=== PATIENT | female | born 1960 | race Caucasian/White ===

== ENCOUNTER 2017-12-03 01:26 | Day surgery (SDC) | payer OTHER ==
[~2017-12-03] VITALS: Ht 160 cm; Wt 76.7 kg
[~2017-12-03 01:26] MED LIST: ASPI-1471 PO; ATOR20TA22 PO; BACDS PO; CYCL10TA29 PO; HYDR-3250 PO; HYDR12.561 PO; LISI20TA29 PO; MULT1TAB66 PO; NAP500 PO; OXYC-865 PO; PER PO; PRED20TA6 PO; SIMV-49 PO; TRA50 PO; VALA500T63 PO
--- NOTE | 2017-12-03 05:46 | Post Operative Progress Note ---
Post Operative Progress Note Date: Dec 03, 2017 Time: 11:16 Surgeon: ricardo Anesthesia: dr downing Pre-Op Diagnosis: personal history of polyps Post-Op Diagnosis: sigmoid diverticulosis Procedure(s): colonoscopy BUSTER VANCE MD Dec 03, 2017 05:46
--- NOTE | 2017-12-03 05:47 | Short(Outpt) Discharge Summary ---
Discharge Summary Reason for Hosp/Final Diag: (1) Encounter for colonoscopy due to history of adenomatous colonic polyps Hospital Course & Plan: sigmoid diverticulosis Departure Discharge to: Home Discharge Instructions Home Meds Reported Medications Aspirin (ASPIR 81) 81 Mg Tablet.dr, 81 MG PO QDAY, TAB 12/01/17 Multivitamin/Iron/Folic Acid (MULTI-DAY PLUS IRON TABLET) 1 Each Tablet, 1 EACH PO QDAY 12/01/17 Valacyclovir Hcl (VALACYCLOVIR) 500 Mg Tablet, 500 MG PO QDAY 12/01/17 Atorvastatin Calcium (LIPITOR) 20 Mg Tablet, 1 TAB PO QAM, TAB 12/01/17 Hydrochlorothiazide (HYDROCHLOROTHIAZIDE) 12.5 Mg Tablet, 1 TAB PO QDAY TAKE ONE TABLET BY MOUTH EVERY DAY 07/04/14 Lisinopril (LISINOPRIL) 20 Mg Tablet, 20 MG PO QDAY 07/04/14 Naproxen (NAPROSYN (OR EQUIV)) 500 Mg Tab, 500 MG PO PRN, #60 10/21/12 Discontinued Reported Medications Simvastatin (SIMVASTATIN) 20 Mg Tablet, 20 MG PO HS, TAB 07/04/14 Discontinued Scripts Prednisone (PREDNISONE) 20 Mg Tablet, 40 MG PO QDAY for PAIN for 7 Days Prov:SERA CHOUDHARY MD 07/14/14 Oxycodone Hcl/Acetaminophen (PERCOCET 5-325 MG TABLET) 1 Each Tablet, 1 EACH PO Q4-6H Y for PAIN, #20 Prov:SERA CHOUDHARY MD 07/14/14 Cyclobenzaprine Hcl (CYCLOBENZAPRINE HCL) 10 Mg Tablet, 10 MG PO TID for Muscle Relaxant, #30 TAB TAKE 1 TABLET BY MOUTH THREE TIMES A DAY Prov:SERA CHOUDHARY MD 07/14/14 Diet: High Fiber Activity: As Tolerated BUSTER VANCE MD Dec 03, 2017 05:47
[2017-12-03] MEDS ORDERED: PROPOFOL EMUL(*) 10MG/ML 20 ML 20 ML ONE (07:14)
[2017-12-03] MEDS ORDERED: MIDAZOLAM 2 MG/2 ML VIAL IVP ONE (10:00)
[2017-12-03] MEDS ORDERED: LIDOCAINE/SOD BICARB 8.4% SYR ID ONE (10:00)
[2017-12-03] MEDS ORDERED: NORMOSOL R SOLN(*) 1000 ML BAG 1,000 ML IV PRN (10:00)
[2017-12-03 10:03] VITALS: BP 102/63
[2017-12-03 11:16] VITALS: BP 90/65
[2017-12-03 11:30] VITALS: BP 93/61
[2017-12-03 11:40] VITALS: BP 107/64
[2017-12-03 11:44] VITALS: BP 101/73
--- NOTE | 2017-12-03 18:51 | OPERATIVE REPORT 1 ---
EVENT DATE: December 03, 2017 SURGEON: Adam Monae MD ANESTHESIOLOGIST: Marc Hodges MD ANESTHESIA: Sedation. PREOPERATIVE DIAGNOSIS Personal history of polyps. POSTOPERATIVE DIAGNOSIS Sigmoid diverticulosis. PROCEDURE PERFORMED Colonoscopy. DESCRIPTION OF PROCEDURE The patient was placed in the left lateral decubitus position and given intravenous sedation. The rectal exam was unremarkable. A flexible colonoscope was inserted and advanced to the cecum. She had a little bit of thick liquid stool in the right colon. We were able to suction this out well and get good visualization. No abnormalities were noted in the cecum or right colon. Care was taken to look behind the haustral folds. In the transverse colon, she had a light covering of stool, but we could see through this pretty well, and no abnormalities were noted in the transverse colon or descending colon. She had some diverticula in the sigmoid colon. No evidence of diverticulitis. The rectum was normal. The scope was retroflexed, and that appeared to be normal. The patient will require repeat colonoscopy in five years due to the personal history of polyps. SUSAN
== END 2017-12-03 12:00 | disposition home or self-care (01) ==
LOC: OR 01:26
PROVIDERS: ATTEND Surgery
DX: Z12.11 Encounter for screening for malignant neoplasm of colon (principal); K57.30 Diverticulosis of large intestine without perforation or abscess without bleeding; Z86.010 Personal history of colon polyps
CPT/HCPCS: 00812; 45378; J2704

== ENCOUNTER 2018-07-29 10:13 | Emergency (ER) | payer SELFPAY ==
[~2018-07-29 10:13] MED LIST changes: -FAMO-67 PO; -FLUT16SP19 NS; -HYDR-2966 PO; -NITR0.4T3 SL
--- NOTE | 2018-07-29 10:14 | ER Report ---
History and Physical Time Seen By MD: 10:15 HPI/ROS CHIEF COMPLAINT: Left arm numbness during stress test HISTORY OF PRESENT ILLNESS: Patient is a 57-year-old female who presents to the emergency department after experiencing some left arm numbness that occurred during an exercise stress test today. Patient states she's been having episodic chest pain and arm numbness which is the reason the testing was done. Looking at the stress test report patient had normal pretest EKG. Patient was able to exercise through stage I 2 and 3 using the Camron protocol. She developed left arm numbness at 8 minutes of exercise. In the recovery phase she still complained of numbness which was improving. She was given 2 sublingual nitroglycerin at 12 minutes and again at 27 minutes without significant improvement. Or this reason she was sent to the emergency department for further evaluation. Patient states that she actually did some exercise on an elliptical machine this morning and was able to tolerate exercise without any difficulty but did report some chest pressure on her way home. She currently states the left arm numbness is resolving. REVIEW OF SYSTEMS: Constitutional: No fever, no chills. Eyes: No discharge. ENT: No sore throat. Cardiovascular: No chest pain, no palpitations. Respiratory: No cough, no shortness of breath. Gastrointestinal: No abdominal pain, no vomiting. Genitourinary: No hematuria. Musculoskeletal: No back pain. Skin: No rashes. Neurological: No headache. Left arm numbness Allergies: Coded Allergies: morphine (Verified Allergy, Mild, NAUSEA/VOMITING, 07/29/18) codeine (Verified Allergy, Unknown, 07/29/18) Home Meds Reported Medications Famotidine (FAMOTIDINE) 20 Mg Tablet, 20 MG PO QDAY, TAB 07/29/18 Fluticasone Prop 50 Mcg Ns (FLONASE 50 MCG NS) 16 Gm [place].susp, 1 SPRAY NS BID, BOT 07/29/18 Hydrochlorothiazide (HYDROCHLOROTHIAZIDE) 25 Mg Tablet, 1 TAB PO QDAY, TAB 07/29/18 Nitroglycerin (NITROGLYCERIN) 0.4 Mg Tab.subl, 0.4 MG SL Q5MIN 07/29/18 Multivitamin/Iron/Folic Acid (MULTI-DAY PLUS IRON TABLET) 1 Each Tablet, 1 EACH PO QDAY 12/01/17 Valacyclovir Hcl (VALACYCLOVIR) 500 Mg Tablet, 500 MG PO QDAY 12/01/17 Atorvastatin Calcium (LIPITOR) 20 Mg Tablet, 1 TAB PO QAM, TAB 12/01/17 Hydrochlorothiazide (HYDROCHLOROTHIAZIDE) 12.5 Mg Tablet, 1 TAB PO QDAY TAKE ONE TABLET BY MOUTH EVERY DAY 07/04/14 Lisinopril (LISINOPRIL) 20 Mg Tablet, 20 MG PO QDAY 07/04/14 Naproxen (NAPROSYN (OR EQUIV)) 500 Mg Tab, 500 MG PO PRN, #60 10/21/12 Discontinued Reported Medications Aspirin (ASPIR 81) 81 Mg Tablet.dr, 81 MG PO QDAY, TAB 12/01/17 Past Medical/Surgical History Hypertension, hypercholesterolemia Hx Smoking: Yes Smoking Status: Former Smoker Hx Substance Use Disorder: No Hx Alcohol Use: No Constitutional Physical Exam General Appearance: The patient is alert, has no immediate need for airway protection and no signs of toxicity. Eyes: Pupils equal and round no pallor or injection. ENT, Mouth: Mucous membranes are moist. Respiratory: There are no retractions, lungs are clear to auscultation. Cardiovascular: Regular rate and rhythm. Gastrointestinal: Abdomen is soft and non tender, no masses, bowel sounds normal. Neurological: Awake and alert Skin: Warm and dry, no rashes. Musculoskeletal: Neck is supple non tender. Extremities are nontender, nonswollen and have full range of motion. Medical Decision Making Data Points Laboratory Hematology Test 07/29/18 10:20 07/29/18 12:00 07/29/18 14:18 Red Blood Count 4.79 M/uL (4.17-5.56) Mean Corpuscular Volume 92.9 fL (80.0-96.0) Mean Corpuscular Hemoglobin 32.0 pg (26.0-33.0) Mean Corpuscular Hemoglobin Concent 34.4 g/dL (32.0-36.0) Red Cell Distribution Width 12.9 % (11.5-14.5) Mean Platelet Volume 8.0 fL (7.2-11.1) Neutrophils (%) (Auto) 55.4 % (39.4-72.5) Lymphocytes (%) (Auto) 33.0 % (17.6-49.6) Monocytes (%) (Auto) 9.2 % (4.1-12.4) Eosinophils (%) (Auto) 1.8 % (0.4-6.7) Basophils (%) (Auto) 0.6 % (0.3-1.4) Nucleated RBC Relative Count (auto) 0.1 /100WBC Neutrophils # (Auto) 3.7 K/uL (2.0-7.4) Lymphocytes # (Auto) 2.2 K/uL (1.3-3.6) Monocytes # (Auto) 0.6 K/uL (0.3-1.0) Eosinophils # (Auto) 0.1 K/uL (0.0-0.5) Basophils # (Auto) 0.0 K/uL (0.0-0.1) Nucleated RBC Absolute Count (auto) 0.00 K/uL Prothrombin Time 12.6 seconds (12.0-14.4) Prothromb Time International Ratio 0.94 Activated Partial Thromboplast Time 24 seconds (23-35) Sodium Level 140 mmol/L (137-145) Potassium Level 3.8 mmol/L (3.5-5.0) Chloride Level 104 mmol/L (98-107) Carbon Dioxide Level 23 mmol/L (22-31) Blood Urea Nitrogen 17 mg/dl (7-18) Creatinine 0.70 mg/dl (0.52-1.04) Glomerular Filtration Rate Calc > 60.0 Random Glucose 103 mg/dl (75-110) Calcium Level 9.7 mg/dl (8.4-10.2) Total Bilirubin 0.8 mg/dl (0.2-1.3) Aspartate Amino Transf (AST/SGOT) 41 U/L (0-35) Alanine Aminotransferase (ALT/SGPT) 56 U/L (0-56) Alkaline Phosphatase 75 U/L (0-126) B-Type Natriuretic Peptide 17 pg/ml (0-100) Total Protein 8.0 g/dl (6.3-8.2) Albumin 4.6 g/dl (3.5-5.0) Urine Color Yellow Urine Clarity Clear Urine pH 6.0 pH (4.8-9.5) Urine Specific [place] 1.010 Urine Protein Negative mg/dL (NEGATIVE) Urine Glucose (UA) Negative mg/dL (NEGATIVE) Urine Ketones Negative mg/dL (NEGATIVE) Urine Blood Negative (NEGATIVE) Urine Nitrite Negative (NEGATIVE) Urine Bilirubin Negative (NEGATIVE) Urine Urobilinogen Negative mg/dL (0.2-1.9) Urine Leukocyte Esterase Negative (NEGATIVE) Urine RBC None /HPF (0-2/HPF) Urine WBC None /HPF (0-5/HPF) Urine Squamous Epithelial Cells Few /LPF (</=FEW) Urine Bacteria Negative /HPF (NONE-FEW) Urine Mucus None /HPF (NONE-FEW) Troponin I < 0.012 ng/ml Chemistry Test 07/29/18 10:20 07/29/18 12:00 07/29/18 14:18 White Blood Count 6.6 k/uL (4.5-11.0) Red Blood Count 4.79 M/uL (4.17-5.56) Hemoglobin 15.3 g/dL (12.0-16.0) Hematocrit 44.5 % (34.0-47.0) Mean Corpuscular Volume 92.9 fL (80.0-96.0) Mean Corpuscular Hemoglobin 32.0 pg (26.0-33.0) Mean Corpuscular Hemoglobin Concent 34.4 g/dL (32.0-36.0) Red Cell Distribution Width 12.9 % (11.5-14.5) Platelet Count 292 K/uL (150-450) Mean Platelet Volume 8.0 fL (7.2-11.1) Neutrophils (%) (Auto) 55.4 % (39.4-72.5) Lymphocytes (%) (Auto) 33.0 % (17.6-49.6) Monocytes (%) (Auto) 9.2 % (4.1-12.4) Eosinophils (%) (Auto) 1.8 % (0.4-6.7) Basophils (%) (Auto) 0.6 % (0.3-1.4) Nucleated RBC Relative Count (auto) 0.1 /100WBC Neutrophils # (Auto) 3.7 K/uL (2.0-7.4) Lymphocytes # (Auto) 2.2 K/uL (1.3-3.6) Monocytes # (Auto) 0.6 K/uL (0.3-1.0) Eosinophils # (Auto) 0.1 K/uL (0.0-0.5) Basophils # (Auto) 0.0 K/uL (0.0-0.1) Nucleated RBC Absolute Count (auto) 0.00 K/uL Prothrombin Time 12.6 seconds (12.0-14.4) Prothromb Time International Ratio 0.94 Activated Partial Thromboplast Time 24 seconds (23-35) Glomerular Filtration Rate Calc > 60.0 Calcium Level 9.7 mg/dl (8.4-10.2) Total Bilirubin 0.8 mg/dl (0.2-1.3) Aspartate Amino Transf (AST/SGOT) 41 U/L (0-35) Alanine Aminotransferase (ALT/SGPT) 56 U/L (0-56) Alkaline Phosphatase 75 U/L (0-126) B-Type Natriuretic Peptide 17 pg/ml (0-100) Total Protein 8.0 g/dl (6.3-8.2) Albumin 4.6 g/dl (3.5-5.0) Urine Color Yellow Urine Clarity Clear Urine pH 6.0 pH (4.8-9.5) Urine Specific [place] 1.010 Urine Protein Negative mg/dL (NEGATIVE) Urine Glucose (UA) Negative mg/dL (NEGATIVE) Urine Ketones Negative mg/dL (NEGATIVE) Urine Blood Negative (NEGATIVE) Urine Nitrite Negative (NEGATIVE) Urine Bilirubin Negative (NEGATIVE) Urine Urobilinogen Negative mg/dL (0.2-1.9) Urine Leukocyte Esterase Negative (NEGATIVE) Urine RBC None /HPF (0-2/HPF) Urine WBC None /HPF (0-5/HPF) Urine Squamous Epithelial Cells Few /LPF (</=FEW) Urine Bacteria Negative /HPF (NONE-FEW) Urine Mucus None /HPF (NONE-FEW) Troponin I < 0.012 ng/ml Coagulation Test 07/29/18 10:20 Prothrombin Time 12.6 seconds Prothromb Time International Ratio 0.94 Activated Partial Thromboplast Time 24 seconds Urinalysis Test 07/29/18 12:00 Urine Color Yellow Urine Clarity Clear Urine pH 6.0 pH (4.8-9.5) Urine Specific [place] 1.010 Urine Protein Negative mg/dL (NEGATIVE) Urine Glucose (UA) Negative mg/dL (NEGATIVE) Urine Ketones Negative mg/dL (NEGATIVE) Urine Blood Negative (NEGATIVE) Urine Nitrite Negative (NEGATIVE) Urine Bilirubin Negative (NEGATIVE) Urine Urobilinogen Negative mg/dL (0.2-1.9) Urine Leukocyte Esterase Negative (NEGATIVE) Urine RBC None /HPF (0-2/HPF) Urine WBC None /HPF (0-5/HPF) Urine Squamous Epithelial Cells Few /LPF (</=FEW) Urine Bacteria Negative /HPF (NONE-FEW) Urine Mucus None /HPF (NONE-FEW) EKG/Imaging EKG Interpretation 07/29/2018 10:22:49 am EKG shows normal sinus rhythm ventricular rate [address] segment or T-wave abnormalities noted. Repeat EKG 07/29/2018 12:07:54 pm shows a normal sinus rhythm with ventricular rate of 62 bpm no significant changes from initial admission EKG Imaging FACILITY: [facility] PATIENT NAME: Nereida Barlow : 1960 MR: [id number] V: [id number] EXAM DATE: ORDERING PHYSICIAN: RINKU PITTS TECHNOLOGIST: [place] [facility] [place] Patient: eNreida Barlow : 1960 Visit/Account:[id number] Date of Sevice: 07/29/2018 Technique: CHEST SINGLE AP HISTORY: Chest pain COMPARISON: None available Findings: The lungs are clear. No pleural effusion or pneumothorax. The cardiomediastinal silhouette is normal. Impression: 1. No acute cardiopulmonary process. Report Dictated By: Alec Pabon DO at 07/29/2018 11:03 AM Report E-Signed By: Alec Pabon DO at 07/29/2018 11:05 AM WSN:[email or web address] ED Course/Re-evaluation ED Course 07/29/2018 10:23:09 am plan at this time will be cardiac workup with altered troponin at 4 hour window. Patient with numbness to the left arm that persisted and that was not responsive to nitroglycerin 2 in the testing setting. She was ultimately brought to the emergency department for evaluation. 07/29/2018 3:03:57 pm repeat troponin is negative. We'll discharge patient home with follow-up with her skills instructor. Decision to Disposition Date: Jul 29, 2018 Decision to Disposition Time: 15:04 Depart Departure Latest Vital Signs Impression: Primary Impression: Chest pain Condition: Improved Disposition: HOME OR SELF-CARE Patient Instructions: Chest Pain (DC) Additional Instructions: Schedule follow-up with her skills instructor and family practice physician for review of your cardiac stress test. Problem Qualifiers Primary Impression: Chest pain Chest pain type: unspecified Qualified Codes: R07.9 - Chest pain, unspecified RINKU PITTS MD Jul 29, 2018 10:14
[2018-07-29] MEDS ORDERED: ASPIRIN 81 MG CHEW PO ONE (10:15)
[2018-07-29] MEDS ORDERED: NITROGLYCERIN OINT 1 GM PKT TP ONE (10:15)
[2018-07-29 10:32] LABS: PLATELET COUNT, AUTOMATED 292 K/uL (150-450)
--- NOTE | 2018-07-29 10:34 | EKG ---
[facility] PATIENT NAME: FRANCIS LEY : [id number] MR: [id number] V: [id number] EXAM DATE: ORDERING PHYSICIAN: RINKU PITTS TECHNOLOGIST: JOSELO Tinajero Reason : CP Blood Pressure : / mmHG Vent. Rate : 077 BPM Atrial Rate : 077 BPM P-R Int : 130 ms QRS Dur : 088 ms QT Int : 408 ms P-R-T Axes : 039 028 032 degrees QTc Int : 461 ms Normal sinus rhythm Normal ECG No previous ECGs available Confirmed by Gaurav Leonard ([id number]) on 07/29/2018 1:19:06 PM Referred By: HONG Confirmed By:Gaurav Teresa
[2018-07-29 10:37] LABS: INR 0.94
--- NOTE | 2018-07-29 11:08 | RADIOLOGY IMAGING REPORT ---
FACILITY: [facility] [place] PATIENT NAME: Nereida Barlow : 1960 MR: [id number] V: [id number] EXAM DATE: ORDERING PHYSICIAN: RINKU PITTS TECHNOLOGIST: Location: [facility] [place] Patient: Nereida Barlow : 1960 Visit/Account:[id number] Date of Sevice: 07/29/2018 Technique: CHEST SINGLE AP HISTORY: Chest pain COMPARISON: None available Findings: The lungs are clear. No pleural effusion or pneumothorax. The cardiomediastinal silhouett e is normal. Impression: 1. No acute cardiopulmonary process. Report Dictated By: Alec Pabon DO at 07/29/2018 11:03 AM Report E-Signed By: Alec Pabon DO at 07/29/2018 11:05 AM WSN:[id number]
[2018-07-29] MEDS ORDERED: KETOROLAC 15 MG/ML VIAL IVP ONE (12:05)
--- NOTE | 2018-07-29 12:08 | EKG ---
[place] [facility] [place] FRANCIS LEY : [id number] MR: [id number] V: [id number] EXAM DATE: ORDERING PHYSICIAN: RINKU PITTS TECHNOLOGIST: JOSELO Tinajero Reason : REPEAT Blood Pressure : / mmHG Vent. Rate : 062 BPM Atrial Rate : 062 BPM P-R Int : 152 ms QRS Dur : 088 ms QT Int : 430 ms P-R-T Axes : 040 047 044 degrees QTc Int : 436 ms Normal sinus rhythm Normal ECG When compared with ECG of 29-JUL-2018 10:19, No significant change was found Confirmed by Gaurav Leonard ([id number]) on 07/29/2018 1:21:31 PM Referred By: HONG Confirmed By:Gaurav Teresa
[2018-07-29 15:00] VITALS: BP 104/60
[2018-07-29] MEDS ORDERED: NITR0.4T3 SL (15:22)
[2018-07-29] MEDS ORDERED: HYDR-2966 PO (15:22)
[2018-07-29] MEDS ORDERED: FAMO-67 PO (15:22)
[2018-07-29] MEDS ORDERED: FLUT16SP19 NS (15:22)
== END 2018-07-29 15:27 | disposition home or self-care (01) ==
LOC: ER 10:20
DX: R07.89 Other chest pain (principal)
CPT/HCPCS: 36415; 71045; 81001; 83880; 84484; 85025; 85610; 85730; 93005; 96374; 99284; J1885; 82040; 82247; 82310; 82374; 82435; 82565; 82947; 84075; 84132; 84155; 84295; 84450; 84460; 84520

== ENCOUNTER → 2018-07-29 | Outpatient (REF) ==
[~2018-07-29] MED LIST changes: +FAMO-67 PO; +FLUT16SP19 NS; +HYDR-2966 PO; +NITR0.4T3 SL
--- NOTE | 2018-07-30 12:59 | RT STRESS TEST REPORT ---
FACILITY: [facility] PATIENT NAME: FRANCIS LEY : [id number] MR: [id number] V: [id number] EXAM DATE: ORDERING PHYSICIAN: RACHID JUNIOR TECHNOLOGIST: Kareem Acquisition Time: 2018-07-29 08:59:37 Total Exercise Time: 00:08:57 Test Indications: Chest Pain / Discomfort Medications: FAMOTIDINE NITROGLYCERIN Protocol: BRUCE2 Max HR: 141 BPM 85% of Pred: 165 BPM Max BP: 173/078 mmHG Max Work Load: 10.1 METS Patient developed left arm numbness at 8 minutes of exercise, numbness improved during recovery but d id not comletely resolved and was sent to ER. No obvious EKG changes during exercise although equivocal changes in the lateral leads Impression Given the fact that patient developed left arm numbness at the peak of exercise that did not resolve with nitro x 3 and was sent to ER for further evaluation, warrants further workup with Nuclear medicine stress test or Cardiology referral No obvious EKG changes to suggest ischemia Confirmed by DANIEL RESTREPO ([id number]) on 07/30/2018 12:59:34 PM Referred By: Overread By: DANIEL RESTREPO
== END ==
LOC: RESP 02:12 → EDSTATUS 09:00
PROVIDERS: ATTEND Family Medicine
DX: R20.2 Paresthesia of skin (principal)
CPT/HCPCS: 93017

== ENCOUNTER → 2018-08-25 | Outpatient (REF) ==
[~2018-08-25] MED LIST changes: +FAMO-67 PO; +FLUT16SP19 NS; +HYDR-2966 PO; +NITR0.4T3 SL
--- NOTE | 2018-08-25 08:54 | RADIOLOGY IMAGING REPORT ---
[place] [facility] [place]: Nereida Barlow : 1960 MR: [id number] V: [id number] EXAM DATE: ORDERING PHYSICIAN: RACHID JUNIOR TECHNOLOGIST: Location: [facility] Patient: Nereida Barlow : 1960 Visit/Account:[id number] Date of Sevice: 08/25/2018 CERVICAL SPINE 2 OR 3 VIEW Indication: Neck pain Comparison: None. Findings: The vertebral bodies and posterior elements are intact. There is facet arthropathy at C2-3, C3-4, and C4-5. Disc spaces are normal. Alignment is maintained. IMPRESSION: Moderate multilevel facet arthropathy, C2-3 through C4-5. Report Dictated By: Yuri Ozuna at 08/25/2018 8:47 AM Report E-Signed By: Yuri Ozuna at 08/25/2018 8:49 AM WSN:[id number]
--- NOTE | 2018-08-25 08:54 | RADIOLOGY IMAGING REPORT ---
[place] [facility] [place] NAME: Nereida Barlow : 1960 MR: [id number] V: [id number] EXAM DATE: ORDERING PHYSICIAN: RACHID JUNIOR TECHNOLOGIST: Location: [facility] [place] Patient: Nereida Barlow : 1960 Visit/Account:[id number] Date of Sevice: 08/25/2018 CHEST PA AND LAT Indication: Chest pain Comparison: Chest x-ray 07/29/2018 Findings: Lungs: Clear. Mediastinum/pulmonary vasculature: Heart size and pulmonary vasculature are normal. Bones/soft tissues: Normal. IMPRESSION: Clear lungs. Report Dictated By: Yuri Ozuna at 08/25/2018 8:49 AM Report E-Signed By: Yuri Ozuna at 08/25/2018 8:49 AM WSN:[id number]
== END ==
LOC: RAD 08:08
PROVIDERS: ATTEND Family Medicine
DX: R07.9 Chest pain, unspecified (principal)
CPT/HCPCS: 71046; 72040